=== PATIENT | male | born 1970 | race Caucasian/White ===

== ENCOUNTER 2024-10-14 09:28 | Outpatient (OUT) | payer OTHER, SELFPAY ==
--- NOTE | 2024-10-14 09:38 | MR_ITS ---
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 Bone marrow signal is unremarkable. Lumbar vertebral body heights are maintained. Mild intervertebral space narrowing L1-2 and less so L2-L3. Multilevel Schmorl's node deformities L1-L5. Multilevel facet arthropathy identified. Conus medullaris terminates normally mid L2. Paraspinal soft tissues unremarkable. T12-L1: Only visualized on the sagittal images. No disc disease or disc protrusion. Evidence of bilateral facet arthropathy with facet spurs extending into both foramina. This causes mild foraminal narrowing. L1-2: Broad-based disc bulge with [id number]-[id number] facet arthropathy. Mild canal and mild neural foraminal narrowing L2-3: Minimal broad-based disc bulge with moderate facet arthropathy. Mild to moderate from narrowing. Mild central canal stenosis. L3-4: Broad-based disc bulge with moderate facet arthropathy. Moderate foraminal narrowing. Mild to moderate central canal stenosis. L4-5: Circumferential disc bulge with endplate osteophytosis. Moderate to severe facet arthropathy with bilateral facet joint effusions. Moderate crowding both subarticular zones. Moderate severe left greater than right neural foraminal narrowing. L5-S1: Mild disc desiccation without focal protrusion. Moderate severe facet arthropathy identified. [id number] right and moderate left neural from narrowing. Canal is patent. MR/MR lumbar spine wo con IMPRESSION: Multilevel degenerative changes predominantly caused by posterior element hypertrophic changes greatest L4-5. This causes bilateral foraminal and subarticular recess narrowing correlate with bilateral L5 and possible left L4 radiculopathy. Impression dictated by: Jam Kenny M.D. 10/15/2024 10:36 AM Dictation Location: [place] [address] Electronically authenticated by: [id number] Y Date: 10/15/2024 10:36
== END 2024-10-14 09:29 | disposition home or self-care (01) ==
PROVIDERS: Visit Provider Nurse Practitioner Gerontology
DX: M51.361 Other intervertebral disc degeneration, lumbar region with lower extremity pain only (principal); M54.16 Radiculopathy, lumbar region
CPT/HCPCS: 72148